=== PATIENT | female | born 1975 | race Caucasian/White ===

== ENCOUNTER 2020-10-05 06:26 | Day surgery (SDC) | payer OTHER, SELFPAY ==
[2020-10-05] VITALS (9 sets, daily range): BP systolic 94–113; BP diastolic 57–71; PULSE 53–77; RESP 9–18; TEMP 36.3–36.8; O2SAT 93–99; BMI 29.3
--- NOTE | 2020-10-05 | PATH_ITS ---
[facility] Accession Number: [id number] . 01 Material submitted: . endometrium - ENDOMETRIAL MASS WITH ENDOMETRIAL CURRETTINGS . 02 Diagnosis: Endometrial Mass with Endometrial Curettings: Portions of disordered proliferative endometrium; negative for glandular hyperplasia, cytologic atypia, or malignancy. Some endometrial fragments demonstrate prominent vessels, suggestive of polyp, if clinical and imaging studies are concordant. Detached fragments of proliferative endometrium; negative for glandular hyperplasia, cytologic atypia, or malignancy. Avulsed portions of squamous epithelium; negative for squamous dysplasia or malignancy. [facility] 10/09/2020 1137 Local . 02 Electronically signed: . Catherine Arana MD, Pathologist NPI- [id number] . 01 Gross description: . The specimen is received in formalin, labeled endometrial mass with endometrial curettings, and consists of multiple khalil-pink fragments of soft tissue and clotted blood measuring 3.0 x 2.5 x 0.6 cm in aggregate. The specimen is filtered and entirely submitted in cassette A1. ([id number]) /[facility] 10/06/2020 1518 Local . 02 Pathologist provided ICD-10: N94.89 . 02 CPT . 311992 Performed at: 01 [facility] [address], [place], [place] [id number] MD Shawn Pepe MD Phone: [phone] Performed at: 02 [facility] [address] [place], [place] [id number] MD Yajaira Wise MD Phone: [phone]
[2020-10-05] MEDS: LACTATED RINGERS 1,000 ML 100 ML IV (07:17)
--- NOTE | 2020-10-05 07:29 | PM.PREOP ---
Pre-operative Note COVID-19 COVID-19 status: Negative Interval Note History & Physical reviewed/Exam performed by Physician: Yes Changes to H&P: No
--- NOTE | 2020-10-05 08:04 | SUR.OPER ---
Lithotomy on padded OR bed, head on pillow, arms secured on padded arm boards at <90 degrees abduction. Legs secured in padded yellow fins stirrups.
--- NOTE | 2020-10-05 08:26 | PM.OP.1 ---
Operative Date/Time/Diagnoses Date of procedure: 10/05/20 Time of procedure: 08:27 Pre-op diagnosis: Menorrhagia with endometrial mass on ultrasound Post-op diagnosis: same Procedure & Clinicians Procedure: Hysteroscopy with resection of mass and endometrial curettaged Same procedure as scheduled: Yes Indications: Menorrhagia with endometrial mass seen on ultrasound Surgeon: Francia Orourke Click Yes if Unassisted: Yes Anesthesia Type: General Operative Notes Findings: Large posterior wall endometrial polyp otherwise normal endometrium Closure Type: not applicable Specimen(s): other (Endometrial polyp with endometrial curettage) Estimated Blood Loss (mL): 2 Blood products transfused: none Procedure in detail: The patient was brought to the operating room where she underwent general anesthesia. She was placed in low stirrups She was prepped and draped in usual sterile fashion with pulsatile stockings in place and functional, warming in place. No antibiotics were indicated. Her bladder was drained with in and out catheter. A single-tooth tenaculum was placed on the anterior lip of the cervix and the uterus dilated to #8 Hegar dilator. The hysteroscope was placed into the uterus with a sorbitol solution running and under constant suction. The resecting loop set at 80 W of cutting was used to resect the polyp down to the level of the endometrium. A endometrial curettage was performed. The polyp and the endometrial curettage was sent to pathology. The patient went to recovery room in good condition counts of instruments and sponges were correct. Estimated blood loss less than 5 mL. The sorbitol solution I=O approximately 1000 mL. Complications: none Post-operative Condition: stable Disposition: same day surgery Plan for aftercare: Home when awake and stable. Follow-up as needed after biopsy results.
== END 2020-10-05 09:40 | disposition home or self-care (01) ==
PROVIDERS: PCP Family Medicine; Referring Provider Specialist; Visit Provider Specialist
PROC: 0UDB8ZZ Extraction of Endometrium, Via Natural or Artificial Opening Endoscopic (ICD-10-PCS; CPT 58558; principal; 2020-10-05 07:45)
DX: N84.0 Polyp of corpus uteri (principal); N92.0 Excessive and frequent menstruation with regular cycle; R93.89 Abnormal findings on diagnostic imaging of other specified body structures; N81.2 Incomplete uterovaginal prolapse
CPT/HCPCS: 58558; 81025; J1100; J1885; J2250; J2405; J2704; J3010